=== PATIENT | male | born 1965 | race Two or more races ===

== ENCOUNTER 2024-05-17 19:39 | Emergency (ER) | payer MEDICAID, OTHER ==
[~2024-05-17] VITALS: Ht 160 cm; Wt 78.6 kg
[2024-05-17] MEDS: fentaNYL CITRATE 100 MCG/2 ML VL IV ONE (20:45)
[2024-05-17] MEDS: TETANUS-DIPTH-ACEL PERTUSSIS 0.5ML SYR Tdap IM ONE (20:45)
--- NOTE | 2024-05-17 20:45 | ED.PDOC ---
History of Present Illness HPI Comments 58 y/o M presents with c/o left-chest wall, bilateral arm, and head pain w/laceration and skin tears s/p mechanical fall and injury, today. Patient reports on falling off a roof at approximately 7-9ft above the ground onto concrete w/o LOC. Patient comments on limited range of motion to his arms. Denies use of blood thinners and endorses on no additional associated symptoms at this time. Time Seen by MD: 20:30 Primary Care Provider: UNKNOWN Reviewed Notes: Nurses Notes, Medications, Allergies Information Source: Patient Mode of Arrival: Ambulatory Severity: Moderate Timing: Hours Duration: Since onset Prehospital treatment: None Past Medical History PAST MEDICAL HISTORY: Denies Surgical History: Denies all surgeries Family History Family History: Unknown Social History Smoker: Non-Smoker Alcohol: Denies ETOH Use Drugs: Denies Drug Use Lives In: Home All Other Systems: Reviewed and Negative (negative unless otherwise stated above or in HPI) Physical Exam General Appearance: No Apparent Distress, Normal HEENT: Normal ENT Inspection, Pharynx Normal, TMs Normal Neck: Full Range of Motion, Non-Tender, Normal, Normal Inspection Respiratory: Chest Non-Tender, Lungs Clear, No Accessory Muscle Use, No Respiratory Distress, Normal Breath Sounds Cardiovascular: No Edema, No JVD, No Murmur, No Gallop, Normal Peripheral Pulses, Regular Rate/Rhythm Breast Exam: Deferred Gastrointestinal: No Organomegaly, Non Tender, No Pulsatile Mass, Normal Bowel Sounds, Soft Genitalia: Deferred Pelvic: Deferred Rectal: Deferred Extremities: No calf tenderness, Normal capillary refill, Normal inspection, Normal range of motion, Non-tender, No pedal edema Musculoskeletal : Apperance: Normal Neurologic: Alert (GCS 15), 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 NO FOREIGN BODY/LACERATIONS/DEFORMITIES NOTED) Peripheral Pulses: 2+ carotid (R), 2+ carotid (L), 2+ femoral (R), 2+ femoral (L), 2+ dorsalis pedis (R), 2+ dorsalis pedis (L), 2+ Radial (R), 2+ Radial (L), 2+ Brachial (R), 2+ Brachial (L) Lymphatic: No Adenopathy Was a procedure done? Was a procedure done?: No Differential Dx Considerations may include: fractures, dislocation, abrasions, contusions, musculoskeletal pain X-Ray, Labs, Meds, VS Vital Signs Date Time Temp Pulse Resp B/P (MAP) Pulse Ox O2 Delivery O2 Flow Rate FiO2 05/18/24 01:00 98.2 78 16 106/66 (79) 96 98.2 05/17/24 20:10 98.1 89 18 109/78 (88) 95 Current Medications Medications (Trade) Dose Ordered Sig/Leyla Route Start Time Stop Time Status Last Admin Acetaminophen/ Hydrocodone Bitart (Quincy 10/325MG Tab) 1 tab ONCE ONCE PO 05/17/24 21:45 05/17/24 21:46 DC 05/17/24 21:53 Lorazepam (Ativan Tablet) 2 mg ONCE ONCE PO 05/17/24 21:45 05/17/24 21:46 DC 05/17/24 21:54 [place] [address] Ph: [phone] DIAGNOSTIC IMAGING Diagnostic Imaging Report : [id number] Signed PATIENT: DIONNE HUNT ACCT: [id number] UNIT: [id number] : 1965 LOC: ER ROOM / BED: / AGE / SEX: 58 / M ADM STATUS: REG ER SERVICE 41 ORDERING PHYSICIAN: QUIRINO OSWALD MD PROCEDURE(s): FAC2C - MAXILLOFACIAL WITHOUT REASON: fall ORDER NUMBER(s): [id number], ACCESSION NUMBER(s): [id number] HISTORY: fall TECHNIQUE: Nonenhanced axial images through the facial bones with coronal and sagittal MPR. Radiation Dose Information: CT Dose: CTDI volume is 66 mGy. Dose-length product is 1611 mGy*cm COMPARISON: None FINDINGS: Mandible: Within normal limits Maxilla: Within normal limits Pterygoid plates: Within normal limits Zygomatic processes: Within normal limits. Zygomatic arches: Within normal limits Orbits: Within normal limits Sinuses: Within normal limits Facial swelling: Within normal limits IMPRESSION: 1. No acute facial fractures. Radiation optimization: All CT scans at this facility use at least one of these dose optimization techniques: automated exposure control mA and/or kV adjustment per patient size (includes targeted exams where dose is matched to clinical indication) or iterative reconstruction. ATED BY: ZANDER URBINA DO DICTATED DATE/TIME: 05/17/242304 SIGNED BY: ZANDER URBINA DO SIGNED DATE/TIME: 05/17/242304 CC: [place] [address] Ph: [phone] DIAGNOSTIC IMAGING Diagnostic Imaging Report : [id number] Signed PATIENT: DIONNE HUNT ACCT: [id number] UNIT: [id number] : 1965 LOC: ER ROOM / BED: / AGE / SEX: 58 / M ADM STATUS: REG ER SERVICE 41 ORDERING PHYSICIAN: QUIRINO OSWALD MD PROCEDURE(s): HWOCT - HEAD WITHOUT CONTRAST REASON: fall ORDER NUMBER(s): [id number], ACCESSION NUMBER(s): [id number] EXAM: CT HEAD WITHOUT CONTRAST INDICATION: fall TECHNIQUE: CT of the head without intravenous contrast. Radiation Dose Information: CT Dose: CTDI volume is 146 0.37 mGy. Dose-length product is 4056.34 mGy*cm The dose indicators for CT are the volume Computed Tomography (CT) Dose Index (CTDIvol) and the Dose Length Product (DLP), and are measured in units of mGy and mGy-cm, respectively. These indicators are not patient dose, but values generated from the CT scanner acquisition factors. The report includes radiation exposure data for exposures received during this examination. COMPARISON: None FINDINGS: There is no evidence of acute intracranial hemorrhage, extra-axial collection, mass effect, midline shift, herniation or hydrocephalus. The ventricles, sulci and cisterns are age appropriate. The larsen-white differentiation is intact. Patchy periventricular and subcortical white matter hypoattenuation is nonspecific but may be related to small vessel ischemic disease. Mild mucosal thickening of the maxillary sinuses bilaterally. The mastoid air cells are clear. The surrounding soft tissues and osseous structures are unremarkable. IMPRESSION: 1. No acute intracranial hemorrhage. 2. No CT findings of skull fracture. 3. No CT findings of territorial ischemia. 4. Mild mucosal thickening of the inferior aspect of the maxillary sinuses bilaterally. 5. Small amount of air in the subcutaneous tissues above the right eye. No underlying fracture or intracranial hemorrhage ATED BY: PAUL HODGES Jr., DO DICTATED DATE/TIME: 05/17/242245 SIGNED BY: PAUL HODGES Jr., SIGNED DATE/TIME: 05/17/242245 CC: [place] [address] Ph: [phone] DIAGNOSTIC IMAGING Diagnostic Imaging Report : [id number] Signed PATIENT: DIONNE HUNT ACCT: [id number] UNIT: [id number] : 1965 LOC: ER ROOM / BED: / AGE / SEX: 58 / M ADM STATUS: REG ER SERVICE 41 ORDERING PHYSICIAN: QUIRINO OSWALD MD PROCEDURE(s): LFOR - L FOREARM XRAY REASON: fall ORDER NUMBER(s): [id number], ACCESSION NUMBER(s): [id number] XY L FOREARM XRAY, INDICATION: fall TECHNICAL DATA: Frontal and lateral views were obtained of the . COMPARISON: XY R FOREARM XRAY on DOS: 05/17/24 FINDINGS: There is no osseous abnormality. Soft tissues are normal. IMPRESSION: No acute fracture or dislocation. ATED BY: ZANDER URBINA DO DICTATED DATE/TIME: 05/17/242241 SIGNED BY: ZANDER URBINA DO SIGNED DATE/TIME: 05/17/242241 CC: [place] [address] Ph: [phone] DIAGNOSTIC IMAGING Diagnostic Imaging Report : [id number] Signed PATIENT: DIONNE HUNT ACCT: [id number] UNIT: [id number] : 1965 LOC: ER ROOM / BED: / AGE / SEX: 58 / M ADM STATUS: REG ER SERVICE 41 ORDERING PHYSICIAN: QUIRINO OSWALD MD PROCEDURE(s): RFOR - R FOREARM XRAY REASON: fall ORDER NUMBER(s): [id number], ACCESSION NUMBER(s): [id number] CLINICAL INDICATION: fall TECHNIQUE: 4 radiographic views of the right forearm were obtained. Comparison: None FINDINGS/IMPRESSION: There is no evidence of acute fracture or dislocation. The visualized joint space is well maintained. The alignment is anatomical. There is no radiopaque foreign body. ATED BY: PAUL HODGES Jr., DO DICTATED DATE/TIME: 05/17/242240 SIGNED BY: PAUL HODGES Jr., SIGNED DATE/TIME: 05/17/242240 CC: [place] [address] Ph: [phone] DIAGNOSTIC IMAGING Diagnostic Imaging Report : [id number] Signed PATIENT: DIONNE HUNT ACCT: [id number] UNIT: [id number] : 1965 LOC: ER ROOM / BED: / AGE / SEX: 58 / M ADM STATUS: REG ER SERVICE 41 ORDERING PHYSICIAN: QUIRINO OSWALD MD PROCEDURE(s): CAPIV - CT CHEST/AB/PL W CON- IV ONLY REASON: fall ORDER NUMBER(s): [id number], ACCESSION NUMBER(s): [id number] Exam: CT CT CHEST/AB/PL W CON- IV ONLY History: fall Comparison Study: None available at time of dictation. Technique: Multidetector CT of the chest, abdomen and pelvis was performed from lower neck to pubic symphysis. Intravenous contrast was administered during this examination. Axial, coronal and sagittal multiplanar reformats were performed by the technologist on a separate workstation. Radiation Dose Information: CT Dose: CTDI volume is 146.37 mGy. Dose-length product is 4056.34 mGy*cm Omnipaque 300: 100 mL Findings: Lower neck: No soft tissue injury no vascular injury. Lungs: No pulmonary consolidations no pleural effusions no pneumothorax. Heart/Vascular Structures: Within normal limits Lymph Nodes: No adenopathy Pleura: Pleural thickening pleural effusions Liver: The liver is normal in size. No focal lesions. Normal hepatic vascular enhancement. Gallbladder and Biliary Tree: Unremarkable Spleen: Unremarkable Pancreas: The pancreas is normal in appearance without focal lesions or abnormal enhancement. Adrenal Glands: Unremarkable Kidneys: Kidneys demonstrate normal symmetric enhancement without focal lesions, calculi or hydronephrosis. Bladder: Unremarkable Bowel: The stomach is grossly normal in appearance. Small bowel and colon are normal in caliber and distribution. The appendix is not visualized; however, no secondary findings of acute appendicitis identified. Ascites: Absent Lymphadenopathy: No mesenteric, retroperitoneal or periportal lymphadenopathy. Abdominal Wall and Mesentery: Unremarkable. Vasculature: The visualized abdominal aorta is normal in size and caliber. Abdominal and pelvic vessels demonstrate normal enhancement. Pelvic Organs: Unremarkable Musculoskeletal: No aggressive focal bony lesions, acute fractures or dislocation. Grade 1 anterior spondylolisthesis L5-S1 IMPRESSION: 1. [No acute finding involving chest, abdomen or pelvis.] 2. Grade 1 anterior spondylolisthesis L5-S1. 3. No solid organ injury. 4. No findings of vascular injury. 5. All CT scans at this medical facility are performed using dose modulation techniques as appropriate to a performed exam including the following: Automated exposure control was utilized; adjustment of the MA and/or KV according to patient size; and use of iterative reconstruction technique. ATED BY: PAUL HODGES Jr., DO DICTATED DATE/TIME: 05/17/242300 SIGNED BY: PAUL HODGES Jr., SIGNED DATE/TIME: 05/17/242300 CC: All CT imaging reports were reviewed Patient received Quincy and Ativan in ER visit Patient neurovascularly intact and reported improvement in symptoms prior to discharge Wound care/cleaning discussed and advised Advised on rest/no strenuous activity, elevation and alternate ice on/off as needed for pain Advised to follow up with PCP in 1-2 days Patient alert and oriented x4 prior to discharge. Patient verbalized understanding and agreeable with current plan of care Advised to return to ER immediately if symptoms worsen Images Reviewed?: Images reviewed and evaluated by Time of 1ST Reevaluation: 21:00 Reevaluation 1ST: Unchanged Time of 2ND Reevaluation: 01:42 Reevaluation 2ND: Improved Patient Education/Counseling: Diagnosis, Treatment Family Education/Counseling: No Family Present Departure 1 Departure Time of Disposition: 01:42 Impression: Primary Impression: Skin tear of left forearm without complication Qualified Codes: S51.812A - Laceration without foreign body of left forearm, initial encounter Additional Impressions: Fall with injury Qualified Codes: W19.XXXA - Unspecified fall, initial encounter Head injury Qualified Codes: S09.90XA - Unspecified injury of head, initial encounter Abrasion of forearm, right Qualified Codes: S50.811A - Abrasion of right forearm, initial encounter Disposition: HOME / SELF CARE / HOMELESS Condition: Stable e-Prescriptions Acetaminophen W/ Codeine (Tylenol W/Cod #3) 1 Tab Tb 1 TAB PO Q6HPRN, #10 TAB 0 Refills Prov: CANDELARIA RIVERA 05/18/24 Cephalexin Monohydrate (Cephalexin) 500 Mg Cap 1 CAP PO BID for 7 Days, #14 CAP 0 Refills Prov: CANDELARIA RIVERA 05/18/24 Discharged With: Friend Critical Care Note Critical Care Time?: No Stability Stability form required: No Heart Score Heart Score: Heart Score Response (Comments) Value History N/A 0 EKG N/A 0 Age N/A 0 Risk Factors N/A 0 Troponin N/A 0 Total 0 I personally scribed for QUIRINO OSWALD MD ([email or web address]) on 05/17/24 at 20:45. Electronically submitted by Florin Dominguez ([email or web address]). I personally scribed for QUIRINO OSWALD MD ([email or web address]) on 05/17/24 at 23:57. Electronically submitted by Florin Dominguez ([email or web address]). QUIRINO OSWALD MD May 17, 2024 20:45 CANDELARIA RIVERA May 18, 2024 01:54
[2024-05-17] MEDS: IOHEXOL 300 MG/ML 100ML BOTTLE IJ ONE (20:55)
[2024-05-17] MEDS: HYDROcodone-ACET 10/325MG TAB PO ONE (21:53)
[2024-05-17] MEDS: LORazepam 0.5 MG TAB PO ONE (21:54)
--- NOTE | 2024-05-17 22:44 | DVH ---
CLINICAL INDICATION: fall TECHNIQUE: 4 radiographic views of the right forearm were obtained. Comparison: None FINDINGS/IMPRESSION: There is no evidence of acute fracture or dislocation. The visualized joint space is well maintained. The alignment is anatomical. There is no radiopaque foreign body.
--- NOTE | 2024-05-17 22:45 | DVH ---
XY L FOREARM XRAY, INDICATION: fall TECHNICAL DATA: Frontal and lateral views were obtained of the . COMPARISON: XY R FOREARM XRAY on DOS: 05/17/24 FINDINGS: There is no osseous abnormality. Soft tissues are normal. IMPRESSION: No acute fracture or dislocation.
--- NOTE | 2024-05-17 22:48 | DVH ---
EXAM: CT HEAD WITHOUT CONTRAST INDICATION: fall TECHNIQUE: CT of the head without intravenous contrast. Radiation Dose Information: CT Dose: CTDI volume is 146 0.37 mGy. Dose-length product is 4056.34 mGy*cm The dose indicators for CT are the volume Computed Tomography (CT) Dose Index (CTDIvol) and the Dose Length Product (DLP), and are measured in units of mGy and mGy-cm, respectively. These indicators are not patient dose, but values generated from the CT scanner acquisition factors. The report includes radiation exposure data for exposures received during this examination. COMPARISON: None FINDINGS: There is no evidence of acute intracranial hemorrhage, extra-axial collection, mass effect, midline s hift, herniation or hydrocephalus. The ventricles, sulci and cisterns are age appropriate. The larsen-white differentiation is intact. Patchy periventricular and subcortical white matter hypoattenuation is nonspecific but may be related to small vessel ischemic disease. Mild mucosal thickening of the maxillary sinuses bilaterally. The mastoid air cells are clear. The surrounding soft tissues and osseous structures are unremarkable. IMPRESSION: 1. No acute intracranial hemorrhage. 2. No CT findings of skull fracture. 3. No CT findings of territorial ischemia. 4. Mild mucosal thickening of the inferior aspect of the maxillary sinuses bilaterally. 5. Small amount of air in the subcutaneous tissues above the right eye. No underlying fracture or int racranial hemorrhage
--- NOTE | 2024-05-17 23:03 | DVH ---
Exam: CT CT CHEST/AB/PL W CON- IV ONLY History: fall Comparison Study: None available at time of dictation. Technique: Multidetector CT of the chest, abdomen and pelvis was performed from lower neck to pubic s ymphysis. Intravenous contrast was administered during this examination. Axial, coronal and sagittal multiplanar reformats were performed by the technologist on a separate workstation. Radiation Dose Information: CT Dose: CTDI volume is 146.37 mGy. Dose-length product is 4056.34 mGy*cm Omnipaque 300: 100 mL Findings: Lower neck: No soft tissue injury no vascular injury. Lungs: No pulmonary consolidations no pleural effusions no pneumothorax. Heart/Vascular Structures: Within normal limits Lymph Nodes: No adenopathy Pleura: Pleural thickening pleural effusions Liver: The liver is normal in size. No focal lesions. Normal hepatic vascular enhancement. Gallbladder and Biliary Tree: Unremarkable Spleen: Unremarkable Pancreas: The pancreas is normal in appearance without focal lesions or abnormal enhancement. Adrenal Glands: Unremarkable Kidneys: Kidneys demonstrate normal symmetric enhancement without focal lesions, calculi or hydroneph rosis. Bladder: Unremarkable Bowel: The stomach is grossly normal in appearance. Small bowel and colon are normal in caliber and d istribution. The appendix is not visualized; however, no secondary findings of acute appendicitis id entified. Ascites: Absent Lymphadenopathy: No mesenteric, retroperitoneal or periportal lymphadenopathy. Abdominal Wall and Mesentery: Unremarkable. Vasculature: The visualized abdominal aorta is normal in size and caliber. Abdominal and pelvic vess els demonstrate normal enhancement. Pelvic Organs: Unremarkable Musculoskeletal: No aggressive focal bony lesions, acute fractures or dislocation. Grade 1 anterior s pondylolisthesis L5-S1 IMPRESSION: 1. [No acute finding involving chest, abdomen or pelvis.] 2. Grade 1 anterior spondylolisthesis L5-S1. 3. No solid organ injury. 4. No findings of vascular injury. 5. All CT scans at this medical facility are performed using dose modulation techniques as appropriate to a performed exam including the following: Automated exposure control was utilized; adjustment of t he MA and/or KV according to patient size; and use of iterative reconstruction technique.
--- NOTE | 2024-05-17 23:08 | DVH ---
HISTORY: fall TECHNIQUE: Nonenhanced axial images through the facial bones with coronal and sagittal MPR. Radiation Dose Information: CT Dose: CTDI volume is 66 mGy. Dose-length product is 1611 mGy*cm COMPARISON: None FINDINGS: Mandible: Within normal limits Maxilla: Within normal limits Pterygoid plates: Within normal limits Zygomatic processes: Within normal limits. Zygomatic arches: Within normal limits Orbits: Within normal limits Sinuses: Within normal limits Facial swelling: Within normal limits IMPRESSION: 1. No acute facial fractures. Radiation optimization: All CT scans at this facility use at least one of these dose optimization na hniques: automated exposure control mA and/or kV adjustment per patient size (includes targeted exam s where dose is matched to clinical indication) or iterative reconstruction.
[2024-05-17] MEDS: KETOROLAC TROMETH 30 MG/ML 1ML VIAL IV ONE (23:41)
[2024-05-18] MEDS ORDERED: ACE3T PO (01:50)
[2024-05-18] MEDS ORDERED: CEPH500C PO (01:50)
[2024-05-18 02:00] VITALS: BP 107/52; PULSE 83; RESP 18; TEMP 98; O2SAT 97
== END 2024-05-18 02:18 | disposition home or self-care (01) ==
LOC: ER 19:39
DX: S51.812A Laceration without foreign body of left forearm, initial encounter (principal); S09.90XA Unspecified injury of head, initial encounter; S50.811A Abrasion of right forearm, initial encounter; W18.39XA Other fall on same level, initial encounter; Y93.89 Activity, other specified; Y92.89 Other specified places as the place of occurrence of the external cause; Y99.8 Other external cause status
CPT/HCPCS: 70450; 70486; 71260; 73090; 74177; 90471; 90715; 99285; Q9967